=== PATIENT | female | born 1990 | race Caucasian/White ===

== ENCOUNTER → 2021-07-04 | Outpatient (CLI) | payer OTHER | LOC: EXRD 13:50 | DX: E04.9 Nontoxic goiter, unspecified (principal); E04.1 Nontoxic single thyroid nodule | CPT/HCPCS: 76536 ==

== ENCOUNTER 2021-10-26 19:35 | Emergency (ER) | payer OTHER ==
[2021-10-26 20:22] LABS: HEMOGLOBIN 14.9 gm/dl (12.3-15.3); RED BLOOD COUNT 5.3 M/UL (4.00-5.10); WHITE BLOOD COUNT 16.7 K/UL (4.5-11.0)
[2021-10-26 20:49] LABS: BUN/CREATININE RATIO 21 (0-10)
[2021-10-26] MEDS ORDERED: ZOFRAN ODT 4 MG4 MG PO (23:14)
[2021-10-26] MEDS ORDERED: BENTYL 20MG TAB20 MG PO (23:14)
== END 2021-10-26 23:24 | disposition home or self-care (01) ==
LOC: ER1 19:35
PROVIDERS: Family Medicine
DX: R10.10 Upper abdominal pain, unspecified (principal); R11.2 Nausea with vomiting, unspecified; R19.7 Diarrhea, unspecified; Z88.2 Allergy status to sulfonamides; Z20.822 Contact with and (suspected) exposure to COVID-19
CPT/HCPCS: 0240U; 80053; 81001; 83690; 83735; 84703; 85025; 96374; 99284; J7030